=== PATIENT | male | born 1950 | race Caucasian/White ===

== ENCOUNTER 2020-12-14 08:24 | Outpatient (CLI) | payer MEDICARE, OTHER, SELFPAY ==
--- NOTE | ~2020-12-14 | CT_ITS ---
EXAMINATION: CT abdomen pelvis w con DATE: 12/14/2020 09:00 INDICATION: Malignant neoplasm of prostate gland; restaging TECHNIQUE: Computed tomography (CT) of the abdomen and pelvis was performed with 100 cc Omnipaque 350 intravenous contrast. Automated exposure control and iterative reconstruction technique were employe d. Exam dose: 968.75 mGy-cm total exam DLP. COMPARISON: 12/16/2017 CT abdomen pelvis FINDINGS: There is discoid scarring or atelectasis at the middle lobe and lingula. The lung bases are clear of infiltrate or consolidation. Normal heart size. No pericardial or pleural effusion. Status post cholecystectomy. The liver, spleen, pancreas, adrenal glands, bile ducts, pancreatic duct are unremarkable. There is an irregular outline of the kidneys which may be due to persistent lobation or chronic pyelonephritis. No suspicious renal mass lesion. No urinary tract calculus or hydroureteronephrosis. The urinary bladder is evacuated but there appears to be diffuse bladder wall thickening. Status post prostatectomy. There is chronic calcifications of the abdominal aorta and origins of the renal arteries as well as c alcification of the iliac and femoral arteries. No abdominal aortic aneurysm. No intraperitoneal or r etroperitoneal or pelvic mass lesion or adenopathy or ascites. Normal appendix. No bowel obstruction, bowel wall thickening, pneumatosis or intraperitoneal free air . Diffuse idiopathic skeletal hyperostosis of the thoracic spine. Severe degenerative disc disease at L5-S1. No suspicious osteolytic or osteoblastic lesions. IMPRESSION: Status post prostatectomy; no metastatic disease identified Status post cholecystectomy Reviewed, dictated and finalized at [facility]. Reviewed, dictated and finalized at [facility].
--- NOTE | ~2020-12-14 | NM_ITS ---
EXAMINATION: NM bone scan whole body DATE: 12/14/2020 11:51 INDICATION: Malignant neoplasm of the prostate TECHNIQUE: 25 mCi Tc-99m HDP was administered intravenously. Delayed whole-body scintigrams were obt ained. COMPARISON: CT abdomen and pelvis dated 12/14/2020 and bone scan dated 12/16/2017 FINDINGS: Again seen are foci of mildly increased uptake at the left L3-L4 facet joint and at the right T11 cos tovertebral articulation with corresponding severe hypertrophic facet osteoarthritis evident at both locations on prior CT . Unchanged mild increased uptake at the bilateral greater trochanters correspo nding to a small amount of heterotopic ossification at both locations on prior CT . Additional likely enthesopathic increased uptake at the bilateral patellae and anterior tibial tuberosities. Likely de generative joint centered uptake at the bilateral mid feet, at the right acromioclavicular joint and bilateral sternoclavicular joints. Unchanged likely degenerative disc centered uptake at the lower ce rvical spine. Unchanged small focus of indeterminate increased uptake along the right supraorbital ri dge which given the interval stability is most likely benign. New small focus of mild increased uptak e at the anterior right fifth rib with no other imaging of this region for comparison. IMPRESSION: 1. No interval change in an atypical small focus of mild increased uptake at the right supraorbital r im with interval stability favoring a benign etiology. Could consider maxillofacial CT for further ev aluation as clinically indicated. 2. New small focus of mild increased uptake at the anterior right fifth rib and could not exclude met astatic disease although the absence of additional suspicious bone lesions suggests this is less like ly. Differential would include rib fracture and would correlate for history of prior trauma. Consider right rib radiographs for comparison. 3. Otherwise unchanged pattern of scattered foci of likely degenerative uptake with either typical di stribution or corresponding degenerative changes on CT imaging. Reviewed, dictated and finalized at location [facility]. IMPRESSION: 1. No interval change in an atypical small focus of mild increased uptake at th e right supraorbital rim with interval stability favoring a benign etiology. Co uld consider maxillofacial CT for further evaluation as clinically indicated. 2. New small focus of mild increased uptake at the anterior right fifth rib and could not exclude metastatic disease although the absence of additional suspic ious bone lesions suggests this is less likely. Differential would include rib fracture and would correlate for history of prior trauma. Consider right rib ra diographs for comparison. 3. Otherwise unchanged pattern of scattered foci of likely degenerative uptake with either typical distribution or corresponding degenerative changes on CT im aging.
[2020-12-14 08:54] LABS: Estimated Glomerular Filt Rate > 60
== END 2020-12-14 08:25 | disposition home or self-care (01) ==
PROVIDERS: PCP Internal Medicine Infectious Disease; Visit Provider Urology
DX: C61 Malignant neoplasm of prostate (principal); Z90.49 Acquired absence of other specified parts of digestive tract
CPT/HCPCS: 74177; 78306; A9561; Q9967

== ENCOUNTER 2023-01-09 12:25 | Outpatient (CLI) | payer MEDICARE, SELFPAY ==
--- NOTE | ~2023-01-09 | PE_ITS ---
EXAMINATION: PET_PETPSMAST_PT DATE: 01/09/2023 15:32 INDICATION: Prostate cancer post prostatectomy 5 years prior presenting with increasing PSA level. TECHNIQUE: 9.123 mCi of pipflufolastat F-18 (18-F-[id number]) was administered i.v. Low dose computed to mography (CT) images were acquired from the base of the brain to the base of the brain to the proxima l thighs for attenuation correction and anatomic localization. Positron emission tomography (PET) marisela ges were acquired in the same distribution beginning 91 minutes after injection. Images including fus ed PET/CT images were reconstructed in axial, coronal, and sagittal planes. Automated exposure contro l technique was employed. The dose-length product was 1419.90mGy-cm. COMPARISON: CT abdomen pelvis and bone scan dated 12/14/2020 FINDINGS: Head/neck: Typical pattern of symmetric physiologic increased activity in the lacrimal, parotid and submandibula r glands as well as along the mucosa of the nasal and oral cavities, the nidhi-, naso- and hypopharynx, the glottis and esophagus. No pathologically enlarged cervical lymphadenopathy or suspicious foci of increased uptake in the visualized head or neck. Chest: No suspicious pulmonary nodules, pneumonia, pulmonary edema or other pulmonary infiltrates. No pleura l effusion. Heart size normal. Atherosclerotic coronary artery calcification. No pericardial effusion . No pathologically enlarged or PSMA avid thoracic lymphadenopathy. There are PSMA abdomen and sclero tic bone lesions consistent with osseous metastatic disease. These include at the posterior right 8th rib with maximal SUV of 9.7, anteriorly at the right 5th rib with maximal SUV of 17.7 and at the mid right humeral diaphysis with maximal SUV of 10.6. Abdomen/pelvis/proximal thighs: Physiologic renal accumulation and excretion of activity in the kidneys, bladder and along portions o f ureters. Postoperative change of prior prostatectomy. Normal degree and slightly heterogenous patte rn of increased uptake throughout the liver and spleen without radiologic correlate or dominant PSMA avid lesion. Cholecystectomy clips the gallbladder fossa. The pancreas and bilateral adrenal glands are normal. Moderate uptake scattered throughout the bowels with typical duodenal and proximal jejuna l predominance and without radiologic correlate, also likely physiologic. Normal appendix. No other a bnormal foci of increased soft tissue uptake or pathologically enlarged lymphadenopathy in the abdome n, pelvis or proximal thighs. Additional likely metastatic PSMA abdomen sclerotic bone lesions includ ing at the left posterior iliac spine with maximal SUV of 12.5 and throughout the posterior elements bilaterally at L4 and extending into the left posterior L4 vertebral body with maximal SUV of 38.8. IMPRESSION: 1. There are 5 PSMA avid sclerotic bone lesions consistent with metastatic prostate cancer involving the right humeral diaphysis, couple right-sided ribs, L4 and the left posterior iliac spine. No other evident metastatic disease in the lymph nodes or soft tissues. Reviewed, dictated and finalized at location [facility]. IMPRESSION: 1. There are 5 PSMA avid sclerotic bone lesions consistent with metastatic pros evangelista cancer involving the right humeral diaphysis, couple right-sided ribs, L4 and the left posterior iliac spine. No other evident metastatic disease in the lymph nodes or soft tissues.
== END 2023-01-09 12:26 | disposition home or self-care (01) ==
PROVIDERS: PCP Internal Medicine Infectious Disease; Visit Provider Urology
DX: C61 Malignant neoplasm of prostate (principal); R97.20 Elevated prostate specific antigen [PSA]
CPT/HCPCS: 78815; A9595

== ENCOUNTER → 2023-05-01 10:15 | Outpatient (CLI) | payer MEDICARE, SELFPAY ==
--- NOTE | ~2023-05-01 | CT_ITS ---
CT of the Abdomen and Pelvis: Indication: Prostate cancer Technique: 2.5 mm axial scans were obtained through the abdomen and pelvis following intravenous adm inistration of 100 cc of Omnipaque 350. Dose reduction technique was used on this scan by utilizing a utomated exposure control and iterative reconstruction technique. The dose-length product (DLP) was 9 86.47 mGy-cm. COMPARISON: 12/14/2020 Findings: Scans through the lung bases are unremarkable. The liver, spleen, pancreas, adrenals and kidneys are within normal limits. Cholecystectomy clips are present. There are atherosclerotic calcifications of the aorta. No lymphadenopathy. No bowel obstruction or bowel wall thickening. There is no evidence to suggest acute appendicitis. Images through the pelvis were performed. Urinary bladder unremarkable. Patient appears to be post pr ostatectomy. No pelvic mass evident. No ascites. There is a heterogeneous, sclerotic appearance invol ving the L4 vertebral body and left L4 pedicle, suggestive of osteoblastic metastatic disease. 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 Status post prostatectomy. Reviewed, dictated and finalized at location . 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 Status post prostatectomy.
--- NOTE | ~2023-05-01 | DEXA_ITS ---
Bone Density Report Name: KANCHAN TIJERINA Age: 72 Sex: Male Ethnicity: White Date of : 1950 Indication: screening for osteoporosis; height loss; cancer; asthma or emphysema; Referring Provider: ODETTE DEGROOT Study: Bone densitometry was performed. Exam Date: May 01, 2023 Accession number: [id number] Bone Density: Region BMD T-score Z-score Classification AP Spine (L1-L4) 1.272 1.6 2.6 Normal Femoral Neck (Left) 0.781 -1.1 0.1 Osteopenia Total Hip (Left) 1.035 0.0 0.7 Normal Femoral Neck (Right) 0.807 -0.9 0.3 Normal Total Hip (Right) 0.999 -0.2 0.5 Normal Total Hip Mean 1.017 -0.1 0.6 Normal World Health Organization criteria for BMD impression classify patients as: Normal (T-score at or above -1.0), Osteopenia (T-score between -1.0 and -2.5), or Osteoporosis (T-score at or below -2.5). 10-year Fracture Risk(1): Major Osteoporotic Fracture 5.3% Hip Fracture 0.9% Reported Risk Factors: [place] (), Neck BMD=0.781, BMI=31.4 (1) FRAX(R) Version 3.08. Fracture probability calculated for an untreated patient. Fracture probability may be lower if the patient has received treatment. Clinical Information Provided by Patient: Has used the following medications: Vitamin D, Calcium Has the following medical conditions: Asthma or Emphysema, Cancer Patient maximum height was 73 No regular weight bearing exercise Drinks caffeinated beverages Impression: The patient has low bone mass, based on the Left Femoral Neck T-score. The patient has an estimated ten-year risk of hip fracture of 0.9% and an estimated ten-year risk of major fracture of 5.3%, based on the WHO FRAX algorithm. Discussion: BONE DENSITY IS LOW AT ONE OR MORE SKELETAL SITES. This patient's lowest T-score is low at one or more skeletal sites. It meets the World Health Organization's (WHO) criteria for ?low bone mass? (T-score between -1.0 and -2.5). The patient's 10-year risk of fracture as calculated by FRAX is less than the threshold where pharmacological therapy is recommended by the National Osteoporosis Foundation (NOF). However, all treatment decisions require clinical judgment and consideration of individual patient factors, including patient preferences, comorbidities, previous drug use, risk factors not captured in the FRAX model (e.g., frailty, falls, vitamin D deficiency, increased bone turnover, interval significant decline in bone density) and possible under or overestimation of fracture risk by FRAX. The patient should follow a healthful lifestyle (good nutrition with adequate calcium and vitamin D, and appropriate weight-bearing exercise). Follow-Up: Consider repeating this study in 2 to 3 years to reassess this patient's status, or sooner if there is some new clinical indication. Reported by: [facility]
[2023-05-01 11:06] LABS: Estimated Glomerular Filt Rate > 60
== END ==
PROVIDERS: PCP Internal Medicine Infectious Disease; Visit Provider Urology
DX: C61 Malignant neoplasm of prostate (principal); M81.0 Age-related osteoporosis without current pathological fracture; M85.852 Other specified disorders of bone density and structure, left thigh
CPT/HCPCS: 74177; 77080; Q9967

== ENCOUNTER → 2023-05-26 07:02 | Outpatient (CLI) | payer MEDICARE, SELFPAY ==
--- NOTE | ~2023-05-26 | MR_ITS ---
EXAMINATION: MR lumbar spine wo con DATE: 05/26/2023 07:35 INDICATION: Low back pain. Left leg pain. TECHNIQUE: Magnetic resonance imaging (MRI) of the lumbar spine was performed without intravenous con trast. Sequences included sagittal T2-weighted FSE, sagittal T2-weighted FS FSE, sagittal T1-weighted FSE, and axial T2-weighted FSE. COMPARISON: CT abdomen and pelvis 05/01/2023 FINDINGS: Bone alignment is normal. There is bone marrow replacement involving L4 vertebral body and left posterior elements. There is a lesion of bone marrow replacement in left ilium. There is mildly decreased disc height at L1-L2 and L4-5 and severely decreased disc height at L5-S1. The distal spina l cord signal intensity is normal. The conus medullaris is at T12-L1. The following disc levels are specifically discussed: L1-L2: The disc is bulging. There is moderate bilateral facet joint osteoarthritis. There is moderate right and mild left neural foraminal stenosis. There is mild central canal stenosis. L2-L3: The disc is bulging. There is severe bilateral facet joint osteoarthritis. There is mild bilat eral neural foraminal stenosis. There is mild central canal stenosis. L3-L4: The disc is bulging and has an annular fissure. There is moderate right and severe left facet joint osteoarthritis. There is mild bilateral neural foraminal stenosis. There is left-sided epidural tumor involvement. There is moderate stenosis of left lateral recess. There is mild central canal st enosis. L4-L5: The disc is bulging and has an annular fissure. There is severe bilateral facet joint osteoart hritis. There is epidural tumor involvement in left neural foramen. There is moderate bilateral neura l foraminal stenosis. There is mild central canal stenosis. L5-S1: The disc is bulging and has an annular fissure. There is severe bilateral facet joint osteoart hritis. There is moderate right and mild left neural foraminal stenosis. There is mild central canal stenosis. IMPRESSION: 1. Bone marrow replacement involving L4 and left ilium, consistent metastatic disease. 2. Severe lumbar spondylosis. Reviewed, dictated and finalized at location [facility]. IMPRESSION: 1. Bone marrow replacement involving L4 and left ilium, consistent metastatic d isease. 2. Severe lumbar spondylosis.
== END ==
PROVIDERS: PCP Nurse Practitioner Family; Visit Provider Nurse Practitioner Family
DX: M47.26 Other spondylosis with radiculopathy, lumbar region (principal)
CPT/HCPCS: 72148

== ENCOUNTER 2024-04-05 08:44 | Outpatient (CLI) | payer MEDICARE, SELFPAY ==
--- NOTE | ~2024-04-05 | PE_ITS ---
EXAMINATION: PET_PETPSMAST_PT DATE: 04/05/2024 11:53 INDICATION: Prostate cancer TECHNIQUE: 4.509 mCi of Locametz Ga-68(33-[id number]) was administered i.v. Low dose computed terry ography (CT) images were acquired from the base of the brain to the base of the brain to the proximal thighs for attenuation correction and anatomic localization. Positron emission tomography (PET) imag es were acquired in the same distribution beginning 126 minutes after injection. Images including fus ed PET/CT images were reconstructed in axial, coronal, and sagittal planes. Automated exposure contro l technique was employed. The dose-length product was 1161.09mGy-cm. COMPARISON: 01/09/2023 FINDINGS: Musculoskeletal: Interval increase in size of the previous noted sclerotic PSMA avid bone lesions with multiple new le sions, now totaling approximately 40 scattered throughout the axial and appendicular skeleton. For re ference there is a new 3.4 x 2.5 similar sclerotic lesion occupying a significant portion of the L3 v ertebral body with maximal SUV of 54.1. The prior lesion at the posterior right eighth rib demonstrat es increasing in size and degree of sclerosis with increase in maximal SUV value from 9.7 to currentl y 54.7. Head/neck: There is symmetric increased activity in the oral cavity, palatine tonsils, parotid glands, submandi bular glands, laryngeal muscles and ocular muscles without CT correlate, likely physiologic. No patho logically enlarged cervical lymphadenopathy or suspicious foci of nonosseous increased FDG uptake in the visualized head or neck. Chest: Lungs are clear with no suspicious pulmonary nodules, pneumonia, pulmonary edema or pleural effusion. Heart size normal. Atherosclerotic coronary artery calcification. No pericardial effusion. Thoracic aorta is normal in caliber. No pathologically enlarged or PSMA avid thoracic lymphadenopathy. Abdomen/pelvis/proximal thighs: Physiologic renal accumulation and excretion of activity in the kidneys, decompressed bladder and leyda ng portions of ureters. Status post prostatectomy. No abnormal soft tissue density or non urine relat ed activity at the prostatectomy bed to suggest residual or locally recurrent disease. Cholecystectom y clips at the gallbladder fossa. Normal degree and slightly heterogenous pattern of increased uptake throughout the liver and spleen without radiologic correlate or dominant PSMA avid lesion. The pancr eas and bilateral adrenal glands are normal. Moderate uptake scattered throughout the bowels with typ ical duodenal and proximal jejunal predominance and without radiologic correlate, also likely physiol ogic. Normal appendix. No other abnormal foci of nonosseous increased uptake or pathologically enlarg ed lymphadenopathy in the abdomen, pelvis or proximal thighs. IMPRESSION: 1. Significant interval progression in number, size and uptake of now numerous and sclerotic PSMA dania d metastatic bone lesions throughout the axial and appendicular skeleton. No evident metastatic lymph adenopathy or other nonosseous metastases. Reviewed, dictated and finalized at location A. IMPRESSION: 1. Significant interval progression in number, size and uptake of now numerous and sclerotic PSMA avid metastatic bone lesions throughout the axial and append icular skeleton. No evident metastatic lymphadenopathy or other nonosseous meta stases.
== END 2024-04-05 08:45 | disposition home or self-care (01) ==
PROVIDERS: PCP Internal Medicine Infectious Disease; Visit Provider Internal Medicine Medical Oncology
DX: C61 Malignant neoplasm of prostate (principal); C79.51 Secondary malignant neoplasm of bone
CPT/HCPCS: 78815; A9596

== ENCOUNTER 2024-04-05 10:23 | Emergency (ER) | payer MEDICARE, SELFPAY ==
--- NOTE | ~2024-04-05 | CT_ITS ---
EXAMINATION: 1. CT brain wo con 2. CT facial bones wo con DATE: 04/05/2024 13:00 INDICATION: Fall with head injury TECHNIQUE: 1. Computed tomography (CT) of the head was performed without intravenous contrast. Sagittal and maria d nal reconstructions were obtained. The dose-length product was 605.33 mGy-cm. 2. CT of the facial bones and maxillofacial region was performed without intravenous contrast. Sagitt al and coronal reconstructions were obtained. The dose-length product was 283.62 mGy-cm. COMPARISON: PET/CT dated 04/05/2024 and 01/09/2023 FINDINGS: Head CT: No calvarial fracture. No acute intracranial hemorrhage, acute infarction or abnormal extra axial flu id collection. Ventricles are normal and symmetric. No mass/mass effect. Mastoid air cells and middle ear cavities are clear. Maxillofacial CT: No maxillofacial fractures. Specifically the nasal bones, mandible, zygomatic arches and angel of the orbits and paranasal sinuses are all intact. Severe osteoarthritis at the atlantoaxial articulation. Mild spondylosis in the visualized cephalad cervical spine with posterior fusion across the right C2 -C3 facet joints. There is a mixed lytic and sclerotic bone lesion along the right supraorbital rim w hich demonstrates mild increased PSMA uptake on prior PET/CT suspicious for metastatic prostate cance r. Orbits are otherwise normal. IMPRESSION: 1. No calvarial fracture or acute intracranial process. 2. No maxillofacial fractures. 3. Small mixed lytic and sclerotic lesion along the right supraorbital rim of increased PSMA uptake o n prior PET/CT consistent with metastatic prostate cancer. Reviewed, dictated and finalized at location A. IMPRESSION: 1. No calvarial fracture or acute intracranial process. 2. No maxillofacial fractures. 3. Small mixed lytic and sclerotic lesion along the right supraorbital rim of i ncreased PSMA uptake on prior PET/CT consistent with metastatic prostate cancer .
[2024-04-05 10:26] VITALS: BP 151/68; PULSE 69; RESP 14; TEMP 36.6; O2SAT 100
--- NOTE | 2024-04-05 10:58 | ED.FALL ---
HPI - Fall General Chief Complaint: Fall Stated Complaint: fall Time Seen by Provider: 04/05/24 10:30 Source: patient Mode of arrival: ambulatory Limitations: no limitations History of Present Illness HPI Narrative: This is a 73-year-old male that presents to the emergency department after a fall today. Patient had been injected with medication for his PET scan. He was walking back into the room to get his scan. One of his she is fell off. This caused him to trip and fall. He hit his face on the ground. He did not lose consciousness. Denies vision changes, vomiting, numbness, weakness. Related Data Allergies Allergy/AdvReac Type Severity Reaction Status Date / Time lansoprazole Allergy Intermediate Hives / Verified 04/05/24 10:25 Red Face Review of Systems Review of Systems: CONSTITUTIONAL: Denies fever EYES: Denies visual changes GASTROINTESTINAL: Denies vomiting NEUROLOGIC: Denies numbness, or weakness. All systems reviewed & are unremarkable except as noted in HPI and below PMFSH Past Medical History Medical History (Updated 04/05/24 @ 13:31 by Belkis Kirk PA-C) History of diabetes mellitus History of hypertension History of prostate cancer Social History Social History (Updated 04/05/24 @ 11:00 by Belkis Kirk PA-C) Smoking status: Never smoker Exam Narrative: GENERAL: Well-appearing, well-nourished, and in no acute distress. HEAD: Normocephalic. Contusion over the right cheek EYES: PERRLA and EOMI. ENT: Nares clear, no rhinorrhea or epistaxis. Mucous membranes moist. Oropharynx without tonsillar hypertrophy exudate or other lesions. Bilateral TMs pearly moya non-bulging NECK: Supple. No adenopathy or masses. No midline spinal tenderness CHEST: Clear to auscultation. No respiratory distress. No wheezes rales or rhonchi HEART: Regular rate and rhythm. No murmur heard. Normal peripheral pulses. EXTREMITIES: Normal range of motion. No edema or obvious deformity. SKIN: Warm, dry, no rash. NEURO: No focal deficits. Alert and oriented x3. Cranial nerves 2-12 grossly intact PSYCH: Normal mood and affect Course Course Emergency Course: Patient updated on his workup and agrees with plan of care Vital Signs Vital signs: Vital Signs Temperature 97.8 F 04/05/24 10:26 Pulse Rate 69 04/05/24 10:26 Respiratory Rate 14 04/05/24 10:26 Blood Pressure 151/68 H 04/05/24 10:26 Pulse Oximetry 100 04/05/24 10:26 Oxygen Delivery Room Air 04/05/24 10:26 Temperature 97.8 F 04/05/24 10:26 Pulse Rate 63 04/05/24 11:49 Respiratory Rate 13 04/05/24 11:49 Blood Pressure 132/61 04/05/24 11:49 Pulse Oximetry 98 04/05/24 11:49 Oxygen Delivery Room Air 04/05/24 10:26 MDM - Fall MDM Narrative Medical decision making narrative: Patient presents to the emergency department after a fall today with head injury. He is neurologically intact. His vitals are stable. CT brain and facial bones without acute intracranial abnormality or facial bone fracture. Patient does have metastatic lesions consistent with his known metastatic prostate cancer. Patient family updated on workup and agree with plan of care. He is to follow up with primary provider. He was given warnings to return to the ER Differential Diagnosis Differential diagnosis: Likely concussion without loss of consciousness and other (Facial fracture, subdural hematoma) Imaging Data Radiologist's impression: ITS Impressions Face CT 04/05/24 13:19 IMPRESSION: 1. No calvarial fracture or acute intracranial process. 2. No maxillofacial fractures. 3. Small mixed lytic and sclerotic lesion along the right supraorbital rim of increased PSMA uptake on prior PET/CT consistent with metastatic prostate cancer. Head CT 04/05/24 13:19
[2024-04-05 11:49] VITALS: BP 132/61; PULSE 63; RESP 13; O2SAT 98
== END 2024-04-05 14:02 | disposition home or self-care (01) ==
PROVIDERS: Emergency Provider Physician Assistant; PCP Internal Medicine Infectious Disease
DX: S09.90XA Unspecified injury of head, initial encounter (principal); E11.9 Type 2 diabetes mellitus without complications; I10 Essential (primary) hypertension; Z85.46 Personal history of malignant neoplasm of prostate; W01.0XXA Fall on same level from slipping, tripping and stumbling without subsequent striking against object, initial encounter
CPT/HCPCS: 70450; 70486; 78815; 99284; A9596

== ENCOUNTER 2024-06-30 12:23 | Outpatient (CLI) | payer MEDICARE, SELFPAY ==
--- NOTE | ~2024-06-30 | PE_ITS ---
EXAMINATION: PET_PETPSMAST_PT DATE: 06/30/2024 14:35 INDICATION: Prostate cancer. TECHNIQUE: 5.405 mCi of Ga-68 gozetotide was administered intravenously. Low dose computed tomography (CT) images were acquired from the base of the brain to the proximal thighs for attenuation correcti on and anatomic localization. Automated exposure control was employed. Dose-length product (DLP) was 1172 mGy-cm. Positron emission tomography (PET) images were acquired in the same distribution. COMPARISON: PET/CT 04/05/2024 FINDINGS: Head/neck: There are no pathologically enlarged lymph nodes. There are scattered sclerotic lesions of bone with increased activity. Chest: The lungs demonstrate mild atelectasis. No pleural effusion. The heart size is normal. There a re coronary artery calcifications. No pericardial effusion. There are no pathologically enlarged lymp h nodes. There are scattered sclerotic lesions of bone with increased activity. Abdomen/pelvis/proximal thighs: The liver and spleen are normal. There are changes of cholecystectomy . The pancreas, adrenal glands, and kidneys are normal. There are no dilated loops of bowel. The appe ndix is normal. The pancreas is absent. There is calcified atherosclerosis of the aorta and many of t he other arteries. There are no pathologically enlarged lymph nodes. There is no ascites. There are s cattered sclerotic lesions of bone with increased activity. IMPRESSION: 1. Scattered sclerotic lesions of bone with increased activity with interval increase in size of mult iple lesions, consistent with metastatic disease. Reviewed, dictated and finalized at location A. IMPRESSION: 1. Scattered sclerotic lesions of bone with increased activity with interval in crease in size of multiple lesions, consistent with metastatic disease.
== END 2024-06-30 12:24 | disposition home or self-care (01) ==
LOC: ANHIMG 12:29
PROVIDERS: PCP Internal Medicine Infectious Disease; Visit Provider Internal Medicine Medical Oncology
DX: C79.51 Secondary malignant neoplasm of bone (principal); C61 Malignant neoplasm of prostate
CPT/HCPCS: 78815; A9596